=== PATIENT | male | born 1985 | race Caucasian/White ===

== ENCOUNTER 2019-09-21 13:12 | Inpatient (IN) | payer OTHER ==
[2019-09-21 14:13] LABS: ABS Basophils 0.1 10^3/ul (0-0.2); ABS Eosinophils 0.1 10^3/ul (0-0.6); ABS Lymphocytes 1.9 10^3/ul (1.0-4.8); ABS Monocytes 0.5 10^3/ul (0-0.8); ABS Neutrophils 4.2 10^3/ul (1.5-7.7); Eosinophil % 1.1 %; Hematocrit 47 % (42-52); Hemoglobin 16.3 g/dL (14.0-18.0); Lymphocyte % 27.5 %; Mean Corpuscular HGB Conc 35 g/dL (31-36); Mean Corpuscular Hemoglobin 30 pg (27-31); Mean Corpuscular Volume 86 fL (80-94); Mean Platelet Volume 7.5 fL (7.4-10.4); Nucleated Red Blood Cells % 0.1; Platelet Count 290 10^3/uL (150-450); Red Blood Count 5.42 10^6 /uL (4.18-5.48); Red Cell Distribution Width 13 % (10-15); White Blood Count 6.7 10^3/uL (3.5-10.8)
--- NOTE | 2019-09-21 14:24 | ED ---
Psychiatric Complaint - HPI Summary HPI Summary: Patient is a 34 y/o M presenting to [facility] for evaluation of SI. Patient reports that "my family is afraid of me" and they called the police as a result. Patient came to ED voluntarily. He notes that he has been having SI for the past few weeks. He notes some decreased PO intake as well. No SI plan noted and he denies Hx of suicide attempt. The patient denies HI but is unsure of auditory hallucinations; he describes a specific episode wherein he was hearing voices from the neighbor's residence but his family had told him that no one was there at the time. He denies PMHx, daily medications, and known drug allergies. He smokes cigarettes, notes some alcohol consumption, and denies substance abuse. He has no physical complaints otherwise and specifically denies abdominal pain, vomiting, and diarrhea. Home medications and allergies are reviewed. Home Medications Medication Instructions Recorded Confirmed Type NK [No Home Medications Reported] 09/21/19 09/21/19 History - History Of Current Complaint Chief Complaint: EDMentalHealth Time Seen by Provider: 09/21/19 13:27 Hx Obtained From: Patient Onset/Duration: Lasting Weeks, Still Present Timing: Weeks Character: Depressed Has Suicidal: Reports: Thoughts. Denies: With A Plan - Allergies/Home Medications Allergies/Adverse Reactions: Allergies Allergy/AdvReac Type Severity Reaction Status Date / Time No Known Allergies Allergy Verified 09/21/19 13:23 Home Medications: Home Medications NK [No Home Medications Reported] 09/21/19 [History Confirmed 09/21/19] PMH/Surg Hx/FS Hx/Imm Hx Sensory History: Denies: Hx Legally Blind, Hx Deafness Opthamlomology History: Denies: Hx Legally Blind EENT History: Denies: Hx Deafness Infectious Disease History: No Infectious Disease History: Denies: Traveled Outside the [place] in Last 30 Days - Family History Known Family History: Negative: Seizure Disorder - Social History Alcohol Use: Occasionally Substance Use Type: Reports: None Review of Systems Gastrointestinal: Other - positive - decreased PO intake Negative: Abdominal Pain, Vomiting, Diarrhea Psychological: Other - positive - SI, possible auditory hallucinations; negative - HI All Other Systems Reviewed And Are Negative: Yes Physical Exam - Summary Physical Exam Summary: Constitutional: Well-developed, Well-nourished, Alert. (-) Distressed Skin: Warm, Dry HENT: Normocephalic; Atraumatic Eyes: Conjunctiva normal Neck: Musculoskeletal ROM normal neck. (-) JVD, (-) Stridor, (-) Tracheal deviation Cardio: Rhythm regular, rate normal, Heart sounds normal; Intact distal pulses; Radial pulses are 2+ and symmetric. (-) Murmur Pulmonary/Chest wall: Effort normal. (-) Respiratory distress, (-) Wheezes, (-) Rales Abd: Soft, (-) tenderness, (-) Distension, (-) Guarding, (-) Rebound Musculoskeletal: (-) Edema Lymph: (-) Cervical adenopathy Neuro: Alert, Oriented x3 Psych: Flat Affect, Patient Speaks Quietly Triage Information Reviewed: Yes Vital Signs On Initial Exam: Initial Vitals Temp Pulse Resp BP Pulse Ox 98.7 F 88 16 154/84 99 09/21/19 13:17 09/21/19 13:17 09/21/19 13:17 09/21/19 13:17 09/21/19 13:17 Vital Signs Reviewed: Yes Procedures - Sedation Patient Received Moderate/Deep Sedation with Procedure: No Diagnostics - Vital Signs Vital Signs Temp Pulse Resp BP Pulse Ox 09/21/19 13:17 98.7 F 88 16 154/84 99 - Laboratory Lab Results: Lab Results 09/21/19 Range/Units 13:57 WBC 6.7 (3.5-10.8) 10^3/uL RBC 5.42 (4.18-5.48) 10^6 /uL Hgb 16.3 (14.0-18.0) g/dL Hct 47 (42-52) % MCV 86 (80-94) fL MCH 30 (27-31) pg MCHC 35 (31-36) g/dL RDW 13 (10-15) % Plt Count 290 (150-450) 10^3/uL MPV 7.5 (7.4-10.4) fL Neut % (Auto) 62.8 % Lymph % (Auto) 27.5 % Baxter % (Auto) 7.7 % Eos % (Auto) 1.1 % Baso % (Auto) 0.9 % Absolute Neuts (auto) 4.2 (1.5-7.7) 10^3/ul Absolute Lymphs (auto) 1.9 (1.0-4.8) 10^3/ul Absolute Monos (auto) 0.5 (0-0.8) 10^3/ul Absolute Eos (auto) 0.1 (0-0.6) 10^3/ul Absolute Basos (auto) 0.1 (0-0.2) 10^3/ul Absolute Nucleated RBC 0.0 10^3/ul Nucleated RBC % 0.1 Result Diagrams: 09/21/19 13:57 09/21/19 13:56 Lab Statement: Any lab studies that have been ordered have been reviewed, and results considered in the medical decision making process. Course/Dx - Course Course Of Treatment: Patient is here with suicidal ideation and paranoid thoughts. Patient was medically cleared by myself. Patient was evaluated by the psychiatric team and admitted involuntarily to the hospital - Differential Dx/Clinical Impression Provider Diagnosis: Psychotic disorder - Physician Notifications Discussed Care Of Patient With: Beau Marquis Time Discussed With Above Provider: 16:29 Instructed by Provider To: Other - Patient's case was reviewed by Dr. Marquis, patient will be admitted to [facility] Discharge ED - Sign-Out/Discharge Documenting (check all that apply): Patient Departure - admit All imaging exams completed and their final reports reviewed: No Studies - Discharge Plan Condition: Stable Disposition: PSYCHIATRIC FACILITY[place] - Billing Disposition and Condition Condition: STABLE Disposition: Psychiatric Facility [facility] - Attestation Statements Document Initiated by Bob: Yes Documenting Scribe: LAURA GALAN Provider For Whom Bob is Documenting (Include Credential): WHITNEY DELEON MD Scribe Attestation: LAURA Vaca, scribed for WHITNEY DELEON MD on 09/21/19 at 2054. Scribe Documentation Reviewed: Yes Provider Attestation: The documentation as recorded by the LAURA jefferson accurately reflects the service I personally performed and the decisions made by me, WHITNEY DELEON MD Status of Scribe Document: Viewed
[2019-09-21 14:28] LABS: ALT 16 U/L (7-52); AST 26 U/L (13-39); Albumin 5.1 g/dL (3.2-5.2); Albumin/Globulin Ratio 1.7 (1-3); Alkaline Phosphatase 93 U/L (34-104); Anion Gap 10 mmol/L (2-11); BUN/Creatinine Ratio 25.2 (8-20); Blood Urea Nitrogen 29 mg/dL (6-24); CO2 Carbon Dioxide 28 mmol/L (22-32); Calcium 9.8 mg/dL (8.6-10.3); Chloride 99 mmol/L (101-111); EGFR African American 88.6 (>60); EGFR Non-African American 73.2 (>60); Glucose 92 mg/dL (70-100); Potassium 3.8 mmol/L (3.5-5.0); Sodium 137 mmol/L (135-145); Total Protein 8.1 g/dL (6.4-8.9)
[2019-09-21 14:35] LABS: Acetaminophen < 15 mcg/mL; Alcohol < 10 mg/dL (<10); Salicylate < 2.50 mg/dL (<30)
[2019-09-21] MEDS ORDERED: Al Hydrox/Mg Hydrox/Simet LIQ* 30 ML UDC PO PRN (16:29)
[2019-09-21] MEDS ORDERED: Acetaminophen TAB* 325 MG PO PRN (16:29)
[2019-09-21] MEDS ORDERED: chlorproMAZINE TAB* 100 MG PO PRN (16:33)
[2019-09-21] MEDS ORDERED: risperiDONE TAB* 1 MG PO SCH (21:00)
--- NOTE | 2019-09-22 10:05 | HP ---
H&P (Free Text) History and Physical: Justification for admission: Immediate Safety. CC " I hear voices" The patient was brought to [facility] by [place] police after he was hearing voices and not eating or sleeping for several days. He reported moving from [facility] 9 months ago to [place] to pursue research on genetics for [employer]. He reported that his girlfriend came to the [place] a few days ago to visit him from [place] and that they may live together. With translation assistance, Gerardo is refusing to take medications, he describes his experience as "living hell in my head." Patient has been observed on the unit mumbling to himself laying on the floor. His girlfriend has not seem him in this way. Patient denied access to firearms or stockpiles of medications. The patient reported feeling suicidal and attempted to injure himself by scratching his arm. He denied homicidal ideation intent or plan. The patient denied visual hallucinations. The patient reported hearing many voices and was unable the onset or content. Depression He reported feeling depressed and having a low mood and having trouble sleeping and little appetite. He reported having low energy levels and decreased concentration. Anxiety Patient describes having symptoms of anxiety such as having times where heart feels that it is beating out of chest , sweaty palms, or shallow breathing. Bipolar Denied symptoms of sharda such as having many ideas at once. Denied increased talkativeness where no one can interrupt. Denied feeling irritable most of the time while having an persistent abundance of energy most of the day without the use of energy drinks, stimulants, or recreational drug use. Denied an increase in intensity in goal directed activities. Denied having the decreased need to sleep for days , having prolonged elevated mood , or feeling on top of the world. Denied impulsive risky sexual encounters. Denied spending money recklessly , going on spending sprees wiping out savings. Denied impulsively traveling out of town or country, having super reyna, and unrealistic wealth or fame. Psychosis Patient endorse hearing things that other people do not hear, he was unable to describe if he has been having feelings that people are spying , following , or reading his thoughts. Phobias: Patient denied having excessive fear of a particular thing or situation. Eating disorders: Patient denied having excessive eating habits or feelings of guilt after eating. Denied repeated episodes of self induced vomiting after eating. PTSD Denied flashbacks, nightmares and avoidance of a prior traumatic event. PAST PSYCHIATRIC HISTORY: Prior Diagnosis : None History of past Psychiatric Hospitalizations: No prior psychiatric admission. History of past suicide/homicide attempts : Denied past suicide attempts, denied repeated self injurious behavior. Denied history of violence. Outpatient follow-up: None Medications: Denied past trials of medication Guardianship: None. FAMILY HISTORY: - Suicide: Grandmother . - Mental illness: Denied a history of mental health in immediate family members. - Substance abuse: Denied substance abuse among family members. SUBSTANCE ABUSE HISTORY: - EtOH: Drinks occasionally 1-2x a month . No associated legal issues, blackouts , seizures, DTs. - Tobacco: Smokes on occasion on average 1-2 Cigarettes per week - Cannabis: Denied - Heroin: Denied - Cocaine: Denied - Substance abuse treatment: Denied past substance abuse treatment SOCIAL HISTORY: - Denied a history of childhood physical and or sexual abuse Born in [facility] - Education: Received Ph.D in [employer] science at [employer] - Living situation: Currently lives in [facility] with his girlfriend - Employment history: Works at [employer] - Relationship: Single and has no children. - Legal history: Denied - service history: Denied PAST MEDICAL HISTORY: Denied heart disease, diabetes, cancer and/ or other medical conditions. - Allergies: Denied drug or other allergies. Physical Exam: Please see ED note Mental Status Exam on Admission APPEARANCE : 34 year old male who appears stated age. Patient appears disheveled with scratch srinivasan on his right upper arm BEHAVIOR: Cooperative , calm EYE CONTACT: Poor PSYCHOMOTOR ACTIVITY: mild psychomotor retardation. MOVEMENTS: No abnormal movements observed. SPEECH : low volume with prolonged latency MOOD : "Depressed " AFFECT : Type is depressed, Range is flat Mood Incongruent THOUGHT PROCESS: Poverty of content with thought blocking THOUGHT CONTENT: no delusions, obsessions, phobias or preoccupations. PERCEPTION: auditory hallucinations with appearing to be responding to internal cues. SUICIDALITY suicidal ideation HOMICIDALITY Denied homicidal ideation, intent or plan. Insight/judgment: Poor insight and judgment ORIENTATION: Oriented to self, location, and time. Diagnosis on Admission: Major Depressive Disorder with Psychotic features. Rule out Catatonia Assessment: 34 year old Male with no know past psychiatric history presented to the emergency department with psychotic symptoms and was unable to contract for safety and was admitted to the BSU at [facility]. Plan #Admit to BSU, Q15 minute observation. Start regular diet. Encourage participation in group therapy and psychoeducation #Patient evaluated in ED and was determined by the emergency room Physician to be medically fit for admission to the BSU. # Justification for Admission: For immediate safety per outlined in the [facility] Code. # The patient requires psychiatric inpatient admission at this time to assure safety, receive treatment and work toward stabilization. # Labs ordered: CBC, CMP, UDS, TSH, HBA1c, TSH, Toxicology screen, Urine analysis, and lipid profile. # HBA1c, glucose, and lipid panel was ordered monitor metabolic status. # EKG ordered for risk of QT prolongation of antipsychotic medication. # Obtain collateral information once release is signed. # Nutrition consult for decreased nutritional intake # Collaboration with Blooming Mill Supervisor Tequila Hobson Tobacco use disorder: nicotine supplement offered and declined #Goals before discharge include: To eliminate/ reduce suicidal ideation, psychiatric stabilization # Start zyprexa 5mg daily for psychosis # Lexapro 10mg daily for depression Tentative Discharge: Pending hospital course and response to treatment The risks, benefits, and alternative treatment options were discussed as well as the risks of refusing treatment. After this discussion and an acknowledgement of this understanding was made. A risk/ benefit assessment of treatment was considered and discussed with the patient. When comparing the risks of treatment with the dangers of not receiving treatment, the benefits of treatment outweigh the treatment risks at this time. Risks of allergy, suicidal ideation, behavioral changes, dystonia, rashes, electrolyte imbalances, movement disorders, cardiac conduction changes, serotonin syndrome, metabolic risks and NMS were among some of the risks discussed. Acetaminophen (Tylenol Tab*) 650 mg PO Q4H PRN PRN Reason: for pain; or Temp >101 F Al Hydrox/Mg Hydrox/Simethicone (Maalox Plus*) 30 ml PO Q4H PRN PRN Reason: INDIGESTION Chlorpromazine HCl (Thorazine Tab*) 100 mg PO Q6H PRN PRN Reason: AGITATION Escitalopram Oxalate (Lexapro *) 10 mg PO DAILY [facility] Olanzapine (Zyprexa * Tab Odt) 5 mg PO DAILY [facility] Sodium 137 mmol/L (135-145) 09/21/19 13:56 Potassium 3.8 mmol/L (3.5-5.0) 09/21/19 13:56 BUN 29 mg/dL (6-24) H 09/21/19 13:56 Creatinine 1.15 mg/dL (0.67-1.17) 09/21/19 13:56 Calcium 9.8 mg/dL (8.6-10.3) 09/21/19 13:56 AST 26 U/L (13-39) 09/21/19 13:56 ALT 16 U/L (7-52) 09/21/19 13:56
[2019-09-22] MEDS ORDERED: Nicotine* 2MG (FRUIT FLAVOR) GUM PO PRN (12:05)
[2019-09-22] MEDS: Escitalopram * 10 MG TAB PO SCH ×2 (12:10→13:57)
[2019-09-22] MEDS: OLANzapine TAB*ODT* 5 MG PO SCH ×2 (12:10→13:57)
[2019-09-23] MEDS: Escitalopram * 10 MG TAB PO SCH (11:04)
[2019-09-23] MEDS: OLANzapine TAB*ODT* 5 MG PO SCH (11:04)
--- NOTE | 2019-09-23 11:18 | PN ---
Subjective - Subjective Date of Service: 09/23/19 Service Type: 72966 Hosp care 35 min high complexity Subjective: Nursing Report: Patient mostly in his room moaning on the ground, refusing medications or diagnostic testing. CC: "I am not taking medications Patient was seen and evaluated today. The patient reported he is not taking medications. He refused medications and has been in his room on the groud moaning to himself. He refused blood work and CT brain scan. Patient has not been eating or drinking fluids. Patient and his girlfriend attended a meeting today with translation assistance and patient took Risperdal 3mg. Objective - General Observations Appearance: Disheveled Appears Stated Age: Yes Stature: WNL Posture: Slumped Eye Contact: Avoidant Behavior/Activity: Peculiar, Impulsive - Interaction Observations Attitude Towards Examiner: Evasive, Mistrustful Stated Mood: Dysphoric, Irritable, Anxious Affect: Restricted Speech Pattern/Tone: Garbled Thought Process: Blocking Perception: Derealization Thought Content: Paranoid Thought Process: Lethality: Paranoid Ideation Hallucination Type: Auditory Delusion Type: Persecution - Cognitive Function Orientation: A&O x 4 Level of Consciousness: Responds to Voice Judgment Within Normal Limits: No Ability to Make Reasonable Decisions: Serverely Impaired - Medication Compliance Cooperative with Inpatient Medication Regimen: No - Group Participation Participates in Group Activities: No Assessment - Assessment Merits Inpatient Hospitalization: For Immediate Safety Clinical Impression: 34 year old Male with no know past psychiatric history presented to the emergency department with psychotic and depressive symptoms and was unable to contract for safety and was admitted to the BSU at [facility]. Plan - Plan Treatment Plan: Name: FABY GREENBERG Birthdate: 1985 [id number] #Q15 minute observation. # The patient requires psychiatric inpatient admission at this time to assure safety, receive treatment and work toward stabilization. # CT brain, RPR, B12 # EKG ordered for risk of QT prolongation of antipsychotic medication results normal # Obtained collateral information from his girlfriend in meeting with desktop publisher assistance, family was contacted. # Nutrition consult for decreased nutritional intake # Collaboration with Welder Journeyman Tequila Hobson # Tobacco use disorder: nicotine supplement offered and declined #Goals before discharge include: Treatment of psychiatric symptoms # If patient continues to refuse treatment will file treatment over objection paperwork # Risperdal 2mg daily # Lexapro 10mg daily for depression Tentative Discharge: Pending hospital course and response to treatment Continued Medication Management: Continue Outpt Medication Medications: Current Medications Acetaminophen (Tylenol Tab*) 650 mg PO Q4H PRN PRN Reason: for pain; or Temp >101 F Al Hydrox/Mg Hydrox/Simethicone (Maalox Plus*) 30 ml PO Q4H PRN PRN Reason: INDIGESTION Chlorpromazine HCl (Thorazine Tab*) 100 mg PO Q6H PRN PRN Reason: AGITATION Escitalopram Oxalate (Lexapro *) 10 mg PO DAILY [facility] Last Admin: 09/23/19 11:04 Dose: Not Given Nicotine Polacrilex (Nicotine Gum*) 2 mg PO Q2H PRN PRN Reason: CRAVING Olanzapine (Zyprexa * Tab Odt) 5 mg PO DAILY [facility] Last Admin: 09/23/19 11:04 Dose: Not Given - Discharge Plan Discharge Plan: Inpatient Hospitalization
[2019-09-23] MEDS ORDERED: OLANzapine TAB*ODT* 10 MG TAB PO SCH (12:00)
[2019-09-23] MEDS ORDERED: risperiDONE-M * 1 MG TAB.ORADIS ONE (12:26)
[2019-09-23] MEDS ORDERED: risperiDONE-M * 1 MG TAB.ORADIS PO ONE (12:55)
[2019-09-24] MEDS: Escitalopram * 10 MG TAB PO SCH (12:33)
[2019-09-24] MEDS: risperiDONE-M * 1 MG TAB.ORADIS PO SCH (12:33)
--- NOTE | 2019-09-24 14:03 | PN ---
Subjective - Subjective Date of Service: 09/24/19 Service Type: 30798 Hosp care 25 min moderate complexity Subjective: There is no change of Gerardo's mental status and he remains to self laying in bed. Sill not taking meds. Makes no eye contact during the assessment and says he doesn't understand why he is even here. Denies A/V hallucinations, delusions , SI or HI although the reliability of his reporting is questionable. Poor food intake per nursing reports but he says he ate. Objective - General Observations Appearance: Disheveled Appears Stated Age: Yes Stature: Tall Posture: WNL Eye Contact: Avoidant Behavior/Activity: Slowed - Interaction Observations Attitude Towards Examiner: Uncooperative Stated Mood: Dysphoric Affect: Blunted Speech Pattern/Tone: Delayed, Quiet Volume Thought Process: Incoherent Thought Content: Paranoid Thought Process: Lethality: Paranoid Ideation Hallucination Type: Denies Delusion Type: Denies - Cognitive Function Orientation: Person, Place Level of Consciousness: Awake, Alert Cognition: Impaired Cognition Estimated Intelligence: Normal Insight: Difficulty Acknowledging Presence of Psyciatric Problems Judgment Within Normal Limits: No Ability to Make Reasonable Decisions: Serverely Impaired - Medication Compliance Cooperative with Inpatient Medication Regimen: No - Group Participation Participates in Group Activities: No Assessment - Assessment Merits Inpatient Hospitalization: For Immediate Safety, For Stabilization, Diagnosis Determination, To Initiate Treatment, For Discharge Planning Clinical Impression: 34 year old Male with no know past psychiatric history presented to the emergency department with psychotic and depressive symptoms and was unable to contract for safety and was admitted to the BSU at [facility]. 09/24/19 : No change. Plan - Plan Treatment Plan: Name: GERARDO GREENBERG Birthdate: 1985 [id number] #Q15 minute observation. # The patient requires psychiatric inpatient admission at this time to assure safety, receive treatment and work toward stabilization. # CT brain, RPR, B12 # EKG ordered for risk of QT prolongation of antipsychotic medication results normal # Obtained collateral information from his girlfriend in meeting with facilities assistant assistance, family was contacted. # Nutrition consult for decreased nutritional intake # Collaboration with Veneer Clipper Helper Tequila Hobson # Tobacco use disorder: nicotine supplement offered and declined #Goals before discharge include: Treatment of psychiatric symptoms # If patient continues to refuse treatment will file treatment over objection paperwork # Risperdal 2mg daily # Lexapro 10mg daily for depression Tentative Discharge: Pending hospital course and response to treatment Continued Medication Management: Start Medication - Consider TOO Medications: Current Medications Acetaminophen (Tylenol Tab*) 650 mg PO Q4H PRN PRN Reason: for pain; or Temp >101 F Al Hydrox/Mg Hydrox/Simethicone (Maalox Plus*) 30 ml PO Q4H PRN PRN Reason: INDIGESTION Chlorpromazine HCl (Thorazine Tab*) 100 mg PO Q6H PRN PRN Reason: AGITATION Escitalopram Oxalate (Lexapro *) 10 mg PO DAILY [facility] Last Admin: 09/24/19 12:33 Dose: 10 mg Nicotine Polacrilex (Nicotine Gum*) 2 mg PO Q2H PRN PRN Reason: CRAVING Risperidone (Risperdal-M Tab *) 2 mg PO DAILY [facility]; Protocol Last Admin: 09/24/19 12:33 Dose: 2 mg - Discharge Plan Discharge Plan: Outpatient Follow Up Outpatient Program: [facility]
[2019-09-25 07:34] LABS: HDL Cholesterol 35.9 mg/dL
[2019-09-25 08:08] VITALS: BP 124/100
[2019-09-25] MEDS: Escitalopram * 10 MG TAB PO SCH (12:31)
[2019-09-25] MEDS: risperiDONE-M * 1 MG TAB.ORADIS PO SCH (12:31)
--- NOTE | 2019-09-26 10:11 | PN ---
Subjective - Subjective Date of Service: 09/26/19 Service Type: [id number] Hosp care 35 min high complexity Subjective: Nursing Report: Patient was visible on unit, no behavioral incidents. Slept overnight. CC: "I am better" Patient was seen and evaluated today. The patient reported he feels better and is less anxious. His father is expected to come on Thursday. He is considering leaving to back to [place]. His girlfriend visited today. He reported having adequate appetite. . Per nursing no behavioral issues or overnight events reported. The patient reported feeling dizzy after taking medications. Objective - General Observations Appearance: Neat Appears Stated Age: Yes Stature: WNL Posture: WNL Eye Contact: Average Behavior/Activity: Peculiar - Interaction Observations Attitude Towards Examiner: Cooperative Stated Mood: Dysphoric Affect: Blunted Speech Pattern/Tone: Appropriate, Normal Volume Thought Process: Coherent Perception: WNL Thought Content: WNL Hallucination Type: Denies Delusion Type: Denies - Cognitive Function Orientation: A&O x 4 Level of Consciousness: Awake - Medication Compliance Cooperative with Inpatient Medication Regimen: Yes - Group Participation Participates in Group Activities: No Assessment - Assessment Merits Inpatient Hospitalization: For Immediate Safety Clinical Impression: 34 year old Male with no know past psychiatric history presented to the emergency department with psychotic and depressive symptoms and was unable to contract for safety and was admitted to the BSU at [facility]. Plan - Plan Treatment Plan: Name: FABY GREENBERG Birthdate: 1985 [id number] #Q30 minute observation with staff pass # Shows improvement and is no longer in anxious distress # The patient requires psychiatric inpatient admission at this time to assure safety, receive treatment and work toward stabilization. # Refusing CT brain # B12 normal # EKG ordered for risk of QT prolongation and WNL # His family is expected to arrive on Thursday # Collaboration with Decorative Engraver Apprentice Tequila Hobson # Tobacco use disorder: Nicotine supplement offered and declined #Goals before discharge include: Resolution of psychiatric symptoms # D/C Risperdal 2mg daily # Lexapro 10mg daily for depression #Start Abilify 10mg qhs due to less anti-cholinergic profile Tentative Discharge: Pending hospital course and response to treatment Continued Medication Management: Continue Outpt Medication Medications: Current Medications Acetaminophen (Tylenol Tab*) 650 mg PO Q4H PRN PRN Reason: for pain; or Temp >101 F Al Hydrox/Mg Hydrox/Simethicone (Maalox Plus*) 30 ml PO Q4H PRN PRN Reason: INDIGESTION Aripiprazole (Abilify Tab*) 10 mg PO QPM [facility] Chlorpromazine HCl (Thorazine Tab*) 100 mg PO Q6H PRN PRN Reason: AGITATION Escitalopram Oxalate (Lexapro *) 10 mg PO DAILY [facility] Last Admin: 09/25/19 12:31 Dose: 10 mg Nicotine Polacrilex (Nicotine Gum*) 2 mg PO Q2H PRN PRN Reason: CRAVING - Discharge Plan Discharge Plan: Inpatient Hospitalization
[2019-09-26] MEDS: Escitalopram * 10 MG TAB PO SCH ×2 (11:22→21:00)
[2019-09-26] MEDS ORDERED: ARIPiprazole TAB* 5 MG PO SCH (18:00)
[2019-09-26] MEDS: ARIPiprazole TAB* 5 MG PO SCH (21:00)
[2019-09-27] MEDS ORDERED: OLANzapine TAB* 10 MG PO PRN (08:23)
--- NOTE | 2019-09-27 12:14 | PN ---
Subjective - Subjective Date of Service: 09/27/19 Service Type: 30383 Hosp care 35 min high complexity Subjective: Nursing Report: Patient was visible on unit, no behavioral incidents. Slept overnight. He is attending group activities. CC: "I thought someone came into my room to charge my phone" Patient was seen and evaluated today. The patient reported when he thinks back that he thought someone came into his place to charge his phone and he felt that he was unable to trust anyone. He is unsure if that was a real experience and now feels less paranoid. He plans to return to [place] with his family. He reported having adequate appetite and sleep. The patient is attending some day groups. Per nursing no behavioral issues or overnight events reported. Patient reported that he is tolerating medications without side effects. Patient does not feel dizzy. Objective - General Observations Appearance: Neat Appears Stated Age: Yes Stature: WNL Posture: WNL Eye Contact: Average Behavior/Activity: WNL - Interaction Observations Attitude Towards Examiner: Cooperative, Anxious Stated Mood: Euthymic Affect: Restricted Speech Pattern/Tone: Clear, Appropriate Thought Process: Coherent Perception: WNL Thought Content: Paranoid Thought Process: Lethality: Paranoid Ideation Hallucination Type: Denies Delusion Type: Denies - Cognitive Function Orientation: A&O x 4 Level of Consciousness: Awake - Medication Compliance Cooperative with Inpatient Medication Regimen: Yes - Group Participation Participates in Group Activities: Partial Assessment - Assessment Merits Inpatient Hospitalization: For Immediate Safety Clinical Impression: 34 year old Male with no know past psychiatric history presented to the emergency department with psychotic and depressive symptoms and was unable to contract for safety and was admitted to the BSU at [facility]. Plan - Plan Treatment Plan: Name: FABY GREENBERG Birthdate: 1985 [id number] #Q30 minute observation with staff pass # Shows improvement and is no longer in anxious distress # The patient requires psychiatric inpatient admission at this time to assure safety, receive treatment and work toward stabilization. # EKG ordered for risk of QT prolongation and WNL # Family at noon Thursday # Collaboration with Quality Reviewer Tequila Hobson # Tobacco use disorder: Nicotine supplement offered and declined #Goals before discharge include: Resolution of psychiatric symptoms # Lexapro 10mg daily for depression #Continue Abilify 10mg qhs due to less anti-cholinergic profile Tentative Discharge: Tomorrow Continued Medication Management: Continue Outpt Medication Medications: Current Medications Acetaminophen (Tylenol Tab*) 650 mg PO Q4H PRN PRN Reason: for pain; or Temp >101 F Al Hydrox/Mg Hydrox/Simethicone (Maalox Plus*) 30 ml PO Q4H PRN PRN Reason: INDIGESTION Aripiprazole (Abilify Tab*) 10 mg PO BEDTIME JOSE ANGEL Last Admin: 09/26/19 21:00 Dose: 10 mg Escitalopram Oxalate (Lexapro *) 10 mg PO BEDTIME JOSE ANGEL Last Admin: 09/26/19 21:00 Dose: 10 mg Nicotine Polacrilex (Nicotine Gum*) 2 mg PO Q2H PRN PRN Reason: CRAVING Olanzapine (Zyprexa Tab*) 10 mg PO Q6H PRN PRN Reason: AGITATION - Discharge Plan Discharge Plan: Inpatient Hospitalization
[2019-09-27] MEDS: Escitalopram * 10 MG TAB PO SCH (21:25)
[2019-09-27] MEDS: ARIPiprazole TAB* 5 MG PO SCH (21:25)
--- NOTE | 2019-09-28 10:52 | DS ---
Subjective - Subjective Service Types: [id number] [facility] Day Mgmt complex over 30 min Discharge Date: 09/28/19 Subjective: CC: " I just wish this did not happen" Patient looks forward to being with his family in [facility]. The patient was seen and evaluated before discharge today. The patient reported having adequate appetite and sleep. Per nursing no behavioral issues or overnight events reported. Patient reported tolerating medications without side effects. Justification for admission: Immediate Safety. CC " I hear voices" The patient was brought to [facility] by [place] police after he was hearing voices and not eating or sleeping for several days. He reported moving from [facility] 9 months ago to [place] to pursue research on genetics for [employer]. He reported that his girlfriend came to the [place] a few days ago to visit him from [facility] and that they may live together. With translation assistance, Gerardo is refusing to take medications, he describes his experience as "living hell in my head." Patient has been observed on the unit mumbling to himself laying on the floor. His girlfriend has not seem him in this way. Patient denied access to firearms or stockpiles of medications. The patient reported feeling suicidal and attempted to injure himself by scratching his arm. He denied homicidal ideation intent or plan. The patient denied visual hallucinations. The patient reported hearing many voices and was unable the onset or content. Depression He reported feeling depressed and having a low mood and having trouble sleeping and little appetite. He reported having low energy levels and decreased concentration. Anxiety Patient describes having symptoms of anxiety such as having times where heart feels that it is beating out of chest , sweaty palms, or shallow breathing. Bipolar Denied symptoms of sharda such as having many ideas at once. Denied increased talkativeness where no one can interrupt. Denied feeling irritable most of the time while having an persistent abundance of energy most of the day without the use of energy drinks, stimulants, or recreational drug use. Denied an increase in intensity in goal directed activities. Denied having the decreased need to sleep for days , having prolonged elevated mood , or feeling on top of the world. Denied impulsive risky sexual encounters. Denied spending money recklessly , going on spending sprees wiping out savings. Denied impulsively traveling out of town or country, having super reyna, and unrealistic wealth or fame. Psychosis Patient endorse hearing things that other people do not hear, he was unable to describe if he has been having feelings that people are spying , following , or reading his thoughts. Phobias: Patient denied having excessive fear of a particular thing or situation. Eating disorders: Patient denied having excessive eating habits or feelings of guilt after eating. Denied repeated episodes of self induced vomiting after eating. PTSD Denied flashbacks, nightmares and avoidance of a prior traumatic event. PAST PSYCHIATRIC HISTORY: Prior Diagnosis : None History of past Psychiatric Hospitalizations: No prior psychiatric admission. History of past suicide/homicide attempts : Denied past suicide attempts, denied repeated self injurious behavior. Denied history of violence. Outpatient follow-up: None Medications: Denied past trials of medication Guardianship: None. FAMILY HISTORY: - Suicide: Grandmother . - Mental illness: Denied a history of mental health in immediate family members. - Substance abuse: Denied substance abuse among family members. SUBSTANCE ABUSE HISTORY: - EtOH: Drinks occasionally 1-2x a month . No associated legal issues, blackouts , seizures, DTs. 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 - Legal history: Denied - service history: Denied PAST MEDICAL HISTORY: Denied heart disease, diabetes, cancer and/ or other medical conditions. - Allergies: Denied drug or other allergies. Physical Exam: Please see ED note Mental Status Exam on Admission APPEARANCE : 34 year old male who appears stated age. Patient appears disheveled with scratch srinivasan on his right upper arm BEHAVIOR: Cooperative , calm EYE CONTACT: Poor PSYCHOMOTOR ACTIVITY: mild psychomotor retardation. MOVEMENTS: No abnormal movements observed. SPEECH : low volume with prolonged latency MOOD : "Depressed " AFFECT : Type is depressed, Range is flat Mood Incongruent THOUGHT PROCESS: Poverty of content with thought blocking THOUGHT CONTENT: no delusions, obsessions, phobias or preoccupations. PERCEPTION: auditory hallucinations with appearing to be responding to internal cues. SUICIDALITY suicidal ideation HOMICIDALITY Denied homicidal ideation, intent or plan. Insight/judgment: Poor insight and judgment ORIENTATION: Oriented to self, location, and time. Diagnosis on Admission: Major Depressive Disorder with Psychotic features. Rule out Catatonia Diagnosis on Discharge: Major Depressive Disorder with Psychotic features, Tobacco Use disorder Condition at the time of discharge: At the time of discharge patient showed improvement of sleep and appetite. The patient was not a danger to self or others. The patient denied suicidal ideation, intent or plan. The patient denied homicidal targets, ideation, intent or plan. This patient participated in psychosocial rehabilitation and gained some insight into problems. The patient gained insight into mental illness, triggers, and treatment. The patient took medication as prescribed. The patient denied side effects of medication and objective signs of side effects were not evident. Therapy Resources were offered to the patient. Patient was given a supply of prescriptions at the time of discharge. The patient plans to attend follow up care with the follow up arrangements that were discussed and put in place. Patient was asked to keep appointments as scheduled, take medication as prescribed, have routine follow up care with their primary care physician and refrain from any use of alcohol or drugs. Objective - General Observations Appearance: Neat Appears Stated Age: Yes Stature: WNL Posture: WNL Eye Contact: Average Behavior/Activity: WNL - Interaction Observations Attitude Towards Examiner: Cooperative Stated Mood: Euthymic Affect: Full Speech Pattern/Tone: Appropriate, Normal Volume Thought Process: Coherent Perception: WNL Thought Content: WNL Hallucination Type: None Delusion Type: None - Cognitive Function Orientation: A&O x 4 Level of Consciousness: Awake Judgment Within Normal Limits: Yes - Medication Compliance Cooperative with Inpatient Medication Regimen: Yes - Group Participation Participates in Group Activities: Yes Treatment Course & Assessment Clinical Course & Impression: Hospital course part A: 34 year old Male with no know past psychiatric history presented to the emergency department with psychotic and depressive symptoms and was unable to contract for safety and was admitted to the BSU at [facility]. Hospital course part B: Labs ordered included CBC, CMP, UDS, TSH, HBA1c, TSH, Toxicology screen, Urine analysis, and lipid profile. Labs were reviewed and vital signs were monitored during the course of admission. EKG ordered and QTc 406. Patient refused CT brain imaging. The patient was admitted to the adult behavioral unit and placed on 15 minute check for safety. At a later time the patient was on Q30 minute observation and staff pass privileges. With those limits being extended, patient was safe on all checks and there were no occurrence of behavioral incidents. The patient did well on the unit and went to groups. Interacted with peers had adequate sleep and regular appetite. Tolerated medication changes without adverse events. Group therapy and services were offered. The risks, benefits, and alternative treatment options were discussed as well as of the risks of refusing treatment. Treatment associated risks discussed. After this discussion the patient made an acknowledgement of this understanding. Follow up care appointments were put in place. HBA1c, glucose, and lipid panel was ordered and reviewed to monitor metabolic status. Monitoring for metabolic changes was reviewed and it was emphasized to the patient to be continued to be monitored upon discharge. The patient was informed not to abruptly stop or start new medications before consulting with a medical professional. Improvements shown from the time of admission include: Improved affect, sleep and decrease in anxiety. The patient expressed readiness for discharge home. The patient presents with a broader range of affect, and the absence of depressed mood, delusions, perceptual disturbance. The patient denied suicidal and or homicidal ideation intent or plan. Overall, the patient responded well to inpatient treatment as evidenced by their report of strengthening of coping mechanisms, reduced distress, and more positive outlook on circumstances. Of note there was an improvement of recognizing how emotional state can effect mood and behavior. Patient was not on more than one anti-psychotic at a given time. Safety precautions were put in place which included involving the patient and their family to closely monitor for changes in mental state. In addition, implementing follow up care, screening for the need to remove/securing firearms , weapons and stockpile of medications. Patient/ family instructed to immediately call 911 should any safety concerns arise. AIMS was performed and insignificant for involuntary movement disorders. The patient was advised of the 24 hour / 7 days a week availability of the emergency room and to call 911 in the event of an emergency such as being suicidal and/ or homicidal. The patient was informed of the contact information for [facility], Suicide Prevention and Crisis Services, National Suicide Prevention Lifeline, [facility], Alcoholics Anonymous, and [facility]. On admission the patient was guarded and refused all medications, he later was amendable to taking medications. Medications started included zyprexa 5mg daily which the patient refused. Patient did take risperdal 2mg daily and this was discontinued due to feeling dizzy. He was started on abilify 10mg qhs for psychosis and lexapro 10mg qhs for depression. Patient showed rapid response to treatment and was less paranoid and anxious. Nicotine replacement was provided to decrease nicotine cravings. Patient informed of the dangers of smoking and offered nicotine cessation resources and declined. Nicotine replacement was provided to decrease nicotine cravings. Family meeting was arranged before discharge and included his father and brother. The family confirmed that the patient is at their baseline. At this time both the patient and family are eager for discharge and are in agreement with the discharge plan and can receive care in the less restrictive outpatient setting. They were advised on how the days following discharge can be a vulnerable period and to look out for warning signs associated with decompensation and progression of mental illness. They were notified of the resources available in the event these situations arise and confirmed that the patient has no access to firearms or stockpiles of medications. 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 Patient was not assaultive or a behavioral problem during the course of admission. The patient showed good hygiene and was able to carry out activities of daily living. Patient will be discharged to live at home. Follow up appointment at [facility]. Patient plans to be seen by mental health professional once he returns to [place]. Patient informed of follow up appointment times. See more details for follow up care in the discharge plan. Risk factors were mitigated by establishing the patients baseline with close contacts and arranging a family meeting. Implemented precautionary safety measures by confirming no stockpiles of medications and no access to firearms, provided mental health treatment, stabilization of depressive features, provided resources to outpatient services, as well as provided a supportive care environment and therapy resources during the course of hospitalization. . Safety plan was reviewed with the patient and treatment team. The patient verbalized options they would pursue to ensure their safety in the event they feel unsafe and not doing well. Patient was provided with mechanisms of coping and adapting to recent work status change. Risk factors: Male, , recent hospitalization, recent change in work. Recent self-injurious behavior. Protective factors: In a relationship. At discharge patient did not have suicidal ideation, intent or plan. Patient has not made a prior suicide attempt. [place], , has children. Has family support system. No history of service. Currently no feelings of hopelessness, not in an occupation of social isolation, doesnt have multiple medical conditions, no family history of suicide, doesnt have access to firearms. Doesnt have command hallucinations and or psychotic features at this time. No current substance abuse. No current alcohol abuse. Not an anniversary of a loss of a loved one. Currently future orientated. Patient currently engaged in treatment and compliant with medication. Not incarcerated. Not middle or older age. Doesnt have cultural belief that supports suicide. Patient does not have a recent loss of someone close that by suicide. Sodium 137 mmol/L (135-145) 09/21/19 13:56 Potassium 3.8 mmol/L (3.5-5.0) 09/21/19 13:56 BUN 29 mg/dL (6-24) H 09/21/19 13:56 Creatinine 1.15 mg/dL (0.67-1.17) 09/21/19 13:56 Hemoglobin A1c 5.2 % (4.0-5.6) 09/25/19 06:52 Calcium 9.8 mg/dL (8.6-10.3) 09/21/19 13:56 AST 26 U/L (13-39) 09/21/19 13:56 ALT 16 U/L (7-52) 09/21/19 13:56 Triglycerides 81 mg/dL 09/25/19 06:52 Cholesterol 192 mg/dL 09/25/19 06:52 LDL Cholesterol 140 mg/dL 09/25/19 06:52 Merits Inpatient Hospitalization: No Clear for Discharge: Adequate Clinical Respons Discharge Planning - Discharge Planning Discharge Plan: Outpatient Follow Up Outpatient Program: [facility] Recommendations for Continuing Care: Medication Management, Psychotherapy Medications: Current Medications Acetaminophen (Tylenol Tab*) 650 mg PO Q4H PRN PRN Reason: for pain; or Temp >101 F Al Hydrox/Mg Hydrox/Simethicone (Maalox Plus*) 30 ml PO Q4H PRN PRN Reason: INDIGESTION Aripiprazole (Abilify Tab*) 10 mg PO BEDTIME JOSE ANGEL Last Admin: 09/27/19 21:25 Dose: 10 mg Escitalopram Oxalate (Lexapro *) 10 mg PO BEDTIME JOSE ANGEL Last Admin: 09/27/19 21:25 Dose: 10 mg Nicotine Polacrilex (Nicotine Gum*) 2 mg PO Q2H PRN PRN Reason: CRAVING Olanzapine (Zyprexa Tab*) 10 mg PO Q6H PRN PRN Reason: AGITATION Discharge Planning: Prescriptions provided for discharge [x] Yes [] No Follow up care details as per social work arrangements. Patient response to discharge plan: [x] eager for discharge [] agreeable with discharge plan [] ambivalent about discharge [] disagrees with discharge today
== END 2019-09-28 14:00 | disposition home or self-care (01) | DRG 751 ==
LOC: ED 13:12 → BSU 16:30
PROVIDERS: ADMIT Psychiatry & Neurology Psychiatry; ATTEND Psychiatry & Neurology Psychiatry
DX: F32.3 Major depressive disorder, single episode, severe with psychotic features (principal); R45.851 Suicidal ideations; F17.210 Nicotine dependence, cigarettes, uncomplicated
CPT/HCPCS: 36415; 80053; 80061; 80320; 80329; 82607; 83036; 85025; 86780; 93005; 99222; 99232; 99233; 99238; 99284; A9270-GY; G0480